=== PATIENT | male | born 1975 | race Caucasian/White ===

== ENCOUNTER 2018-10-12 10:49 | Day surgery (SDC) | payer OTHER ==
[~2018-10-12] VITALS: Ht 170.2 cm; Wt 94.3 kg
[~2018-10-12 10:49] MED LIST: DIGO0.12 PO; ENTR1TAB PO; LR 1,000 ML IV SCH; METO100T5 PO; MIDAZOLAM INJ 2 MG/2 ML VIAL (J2250) As Ordered ONE; PAXI20TA29 PO; PROBCAP14 PO; PROPOFOL 200 MG/20 ML VIAL As Ordered ONE; SUBO8MIS SL; XARE20TA PO; ZOLP6.25 PO; fentaNYL 100 MCG/2 ML INJECTION (J3010) As Ordered ONE
[2018-10-12] MEDS ORDERED: LIDOCAINE 2% INJ 100 MG/5 ML SDV (FOR ANES.) As Ordered ONE (11:27)
[2018-10-12] MEDS ORDERED: CETACAINE SPRAY 5GM As Ordered ONE (11:50)
[2018-10-12 14:00] VITALS: BP 107/54
--- NOTE | 2018-10-12 16:52 | T-ECHO ---
DATE OF PROCEDURE: 10/12/2018 PROCEDURE PERFORMED BY: Sony Claire MD INDICATION: Pre left atrial appendage closure device (Watchman) sizing of the left atrial appendage. DESCRIPTION: Patient received topical Cetacaine spray to the back of the pharynx. He received propofol for intravenous (IV) sedation as administered by the BUS MONITOR. Rhythm was sinus. Esophageal intubation was accomplished without difficulty using a Jose three-dimensional transesophageal echocardiogram probe. The left ventricle appeared to be mildly dilated and had moderate global hypokinesis with appearance of severe reduction in overall left ventricular (LV) systolic function. Left ventricular ejection fraction (LVEF) was 35% by visual estimate. Right ventricle appeared to be normal in size and systolic function. Both atria appeared to be enlarged. Type 1 spontaneous echo contrast without thrombus was seen within the left atrium and the left atrial appendage. A well-seated bioprosthesis was present in the aortic position and was structurally and functionally normal. No aortic regurgitation. Status post mitral valve repair with a mitral annular sewing ring. Very mild mitral regurgitation. No mitral stenosis. Mild focal thickening of the coaptation portion of the anterior mitral leaflet. No vegetations on any of the cardiac valves. Pulmonic and tricuspid valves appeared normal. Very mild tricuspid regurgitation was present. Atrial septum was intact anatomically and by color flow Doppler. Pulmonary venous inflow connections to the left atrium were anatomically normal. No pericardial effusion. Distal aortic arch and descending thoracic aorta appeared normal. The left atrial appendage opening width was 1.5 cm at 0 degrees with depth of 3.5 cm; at 45 degrees, the width was 1.6 cm with depth of 4.0 cm; at 90 degrees, the width was 1.1 cm with depth of 2.8 cm; and at 135 degrees, the width was 1.4 cm with a depth of 2.2 cm. The width of the opening of the left atrial appendage, as much as possible, was obtained at the level of the left circumflex coronary artery. CONCLUSIONS: 1. Maximal left atrial appendage width (opening diameter) was 1.6 cm, and the shortest depth observed was 2.8 cm. Findings suitable to proceed with placement of a [employer] Watchman left atrial appendage closure device. 2. Well seated and structurally and functionally normal aortic valve bioprosthesis. 3. Status post mitral valve repair with a mitral annular sewing ring. No mitral stenosis. Very mild mitral regurgitation. Focal thickening of the coaptation aspect of the anterior mitral leaflet. 4. No vegetations. 5. Appearance of the left ventricle that was dilated with moderate global hypokinesis and severe reduction in overall left ventricular (LV) systolic function. Left ventricular ejection fraction (LVEF) 35% by visual estimate. 6. Type 1 spontaneous echo contrast seen in the left atrium and left atrial appendage. 7. Left atrial dilatation. Probably at least moderate.
== END 2018-10-12 14:08 | disposition home or self-care (01) ==
LOC: M SDC 10:49
PROVIDERS: ATTEND Internal Medicine Cardiovascular Disease
DX: I48.1 Persistent atrial fibrillation (principal); I34.0 Nonrheumatic mitral (valve) insufficiency; I50.42 Chronic combined systolic (congestive) and diastolic (congestive) heart failure; I42.0 Dilated cardiomyopathy; Z95.3 Presence of xenogenic heart valve; Z79.01 Long term (current) use of anticoagulants; Z86.73 Personal history of transient ischemic attack (TIA), and cerebral infarction without residual deficits; I73.9 Peripheral vascular disease, unspecified; Z79.899 Other long term (current) drug therapy; F17.299 Nicotine dependence, other tobacco product, with unspecified nicotine-induced disorders; E66.9 Obesity, unspecified
CPT/HCPCS: 93312; 93325; J2250; J3010